=== PATIENT | female | born 1995 | race Caucasian/White ===

== ENCOUNTER 2024-08-11 21:10 | Outpatient (CLI) | payer OTHER ==
[2024-08-12 05:35] VITALS: PULSE 89; RESP 15; TEMP 98
[2024-08-12 05:45] VITALS: BP 134/84
--- NOTE | 2024-09-19 09:28 | P.MSEPDOC ---
Presenting Problems - Arrival Data Date of Arrival on Unit: 08/12/24 Time of Arrival on Unit: 21:10 Mode of Transport: Ambulatory - Complaint OB-Reason for Admission/Chief Complaint: Possible Onset of Labor Comment: Patient denies complications with this and received care at [facility] in [place], [place]. Patient currently in [place] for cocaine and THC use. Patient arrives to triage via EMS. Patient reports that her water broke at 2000 and can feel baby decending Medical History - Information : 10 Para: 3 Term: 3 : 0 Abortions: Spontaneous or Elective: 6 Number of Living Children: 3 - Gestational Age Gestational Age by LASHONDA (wks/days): 33 Weeks and 3 Days - History Complications: Hx. Substance Abuse Comment: Patient denies complications with this and received care at [facility] in [place], [place]. Patient currently in [place] for cocaine and THC use Review of Systems - Review of Systems Constitutional: No problems Breast: No problems ENT: No problems Cardiovascular: No problems Respiratory: No problems Gastrointestinal: No problems Genitourinary: No problems Musculoskeletal: No problems Neurological: No problems Skin: No problems Vital Signs - Temperature Temperature: 98.0 F Temperature Source: Oral - Pulse Pulse Oximetery Pulse Rate: 89 Pulse Assessment Method: Automatic Cuff - Respirations Respiratory Rate: 15 Oxygen Delivery Method: Room Air O2 Sat by Pulse Oximetry: 97 - Blood Pressure Right Arm Blood Pressure: 134/84 Blood Pressure Mean: 100 Blood Pressure Source: Automatic Cuff Medical Screen Scoring - Cervical Exam Membranes: Ruptured - Assessment - Baby A Baseline FHR: 130 Heart Rate - NICHD Category: Category I (Normal) NST: Reactive Physician Notification - Physician Notified Physician Notified Date: 08/11/24 Physician Notified Time: 21:00 Physician: Judie Alvarez New Order Received: Yes - Notification Comment Comment: see obix Maternal Triage Index - Urgent/Priority 2 Urgent Priority 2: Yes Provider Notified: Judie Alvarez Provider Notified Time: 21:00 Criteria Met for Priority 2: Dr. Alvarez on FBP when patient arrived, orders to lizzette Vyas to perform cervical check obtain FFN (did not send) and to [facility]isure. Disposition - Disposition OB Disposition: Discharge to home Discharge Date: 04/14/25 Discharge Time: 21:10 I agree with the RN Medical Screening Exam: Yes Case reviewed; plan agreed upon as documented in EMR&OBIX.: Yes Diagnosis: FALSE LABOR AT OR AFTER 37 COMPLETED WEEKS OF GESTATION
== END 2024-08-11 22:26 | disposition home or self-care (01) ==
LOC: FBPOP 21:10
PROVIDERS: ATTEND Obstetrics & Gynecology Obstetrics
DX: O47.03 False labor before 37 completed weeks of gestation, third trimester (principal); Z3A.33 33 weeks gestation of pregnancy
CPT/HCPCS: 59025; G0463; 99213